=== PATIENT | male | born 1995 | race Caucasian/White ===

== ENCOUNTER 2018-10-24 21:37 | Emergency (ER) | payer OTHER ==
[2018-10-24 22:56] LABS: Urine Blood NEGATIVE (NEG); Urine Glucose NEGATIVE (NEG); Urine Protein TRACE (NEG)
[2018-10-24] MEDS ORDERED: ONDANSETRON 4 MG/2 ML VIAL ONE (23:17)
[2018-10-24] MEDS ORDERED: NA CHLORIDE 0.9% 1,000 ML ONE (23:17)
[2018-10-24 23:27] LABS: Absolute Lymphocytes (CBC) 1.6 K/uL (0.7-4.9); Absolute Monocytes 0.6 K/uL (0.1-1.3); Absolute Neutrophil 1.7 K/uL (1.8-8.0); Basophils % 0.5 % (0-1.3); Hematocrit 46.2 % (39.6-49.0); Lymphocytes % 40.2 % (15.3-44.8); MPV 10.4 fL (7.6-11.3); Monocytes % 15.1 % (3.3-12.3); RBC Red Blood Cell Count 5.29 M/uL (4.33-5.43)
[2018-10-24] MEDS ORDERED: FENTANYL CITR 100 MCG/2 ML ONE (23:27)
[2018-10-24 23:43] LABS: Albumin 3.7 g/dL (3.4-5.0); Bilirubin Direct 0.1 mg/dL (0-0.2); Bilirubin Total 0.3 mg/dL (0.2-1.0); Potassium 3.4 mmol/L (3.5-5.1); Protein, Total 7.3 g/dL (6.4-8.2)
[2018-10-25 00:28] LABS: Blood Morphology Comment NOT SEEN (NOT SEEN); Platelet Estimate ADEQ; Urine White Blood Cell Casts OK
[2018-10-25] MEDS ORDERED: ONDANSETRON 4 MG/2 ML VIAL ONE (01:15)
[2018-10-25] MEDS ORDERED: CIPROFLOXACIN 400mg IV 400 MG/200 ML BAG IV ONE (01:44)
[2018-10-25] MEDS ORDERED: METRONIDAZOLE 500mg IVPB 500 MG/100 ML BAG IV ONE (01:44)
--- NOTE | 2018-10-25 01:58 | ER ---
Nurse's Notes [facility] Name: Ifrah Tavarez Age: 23 yrs Sex: Male : 1995 Arrival Date: 10/24/2018 Time: 21:42 Bed 26 Private MD: Diagnosis: Illeocolitis Presentation: 10/24 21:42 Presenting complaint: Patient states: "Today is the 3rd day, it feels like food lp1 poisoning"; States he can't eat, upon standing, gets dizzy; Initially began as cold-like symptoms but has progressed; States feeling chills, cold sweats. Transition of care: patient was not received from another setting of care. Onset of symptoms was October 24, 2018. Risk Assessment: Do you want to hurt yourself or someone else? Patient reports no desire to harm self or others. Initial Sepsis Screen: Does the patient meet any 2 criteria? No. Patient's initial sepsis screen is negative. Does the patient have a suspected source of infection? No. Patient's initial sepsis screen is negative. Care prior to arrival: None. 21:42 Method Of Arrival: Ambulatory lp1 21:42 Acuity: JESSIKA 3 lp1 Historical: - Allergies: 21:44 No Known Allergies; lp1 - Home Meds: 21:44 None [Active]; lp1 - PMHx: 21:44 GERD; lp1 - PSHx: 21:44 None; lp1 - Immunization history:: Adult Immunizations up to date, Flu vaccine is not up to date. - Social history:: Smoking status: Patient uses tobacco products, denies chronic smoking, but will smoke occasionally. - Ebola Screening: : No symptoms or risks identified at this time. Screenin:09 Abuse screen: Denies threats or abuse. Denies injuries from another. Nutritional rv screening: No deficits noted. Tuberculosis screening: No symptoms or risk factors identified. Fall Risk None identified. Assessment: 22:08 General: Appears in no apparent distress. uncomfortable, Behavior is calm, cooperative. rv Pain: Complains of pain in abdomen. Neuro: Level of Consciousness is awake, alert, obeys commands, Oriented to person, place, time, situation. Cardiovascular: Capillary refill < 3 seconds. Respiratory: Airway is patent. GI: Abdomen is round Abd is soft and non tender X 4 quads. : No signs and/or symptoms were reported regarding the genitourinary system. EENT: No signs and/or symptoms were reported regarding the EENT system. Derm: Skin is intact. Musculoskeletal: No signs and/or symptoms reported regarding the musculoskeletal system. 10/25 00:52 Reassessment: Pt requested oral fluids after CT scan, informed SAV Esquivel. Instructed on ca1 just a little sip of water. Will wait for CT scan result. 02:00 Reassessment: Patient appears in no apparent distress at this time. Patient and/or rv family updated on plan of care and expected duration. Pain level reassessed. Patient is alert, oriented x 3, equal unlabored respirations, skin warm/dry/pink. Patient states feeling better. Patient states symptoms have improved. Vital Signs: 10/24 21:45 BP 121 / 78; Pulse 105; Resp 20; Temp 99.4(O); Pulse Ox 97% on R/A; Weight 113.4 kg; lp1 Height 5 ft. 10 in. (177.80 cm); Pain 8/10; 22:00 BP 110 / 58 LA; Pulse 92; Resp 19 S; Pulse Ox 98% on R/A; rv 23:00 BP 124 / 89 LA; Pulse 93; Resp 17 S; Pulse Ox 99% on R/A; rv 10/25 00:00 BP 110 / 73 LA; Pulse 61; Resp 16 S; Pulse Ox 98% on R/A; rv 01:00 BP 124 / 78 LA Supine; Pulse 87; Resp 18 S; Pulse Ox 99% on R/A; rv 03:00 BP 102 / 65 LA; Pulse 74; Resp 17 S; Pulse Ox 98% on R/A; rv 10/24 21:45 Body Mass Index 35.87 (113.40 kg, 177.80 cm) lp1 ED Course: 10/24 21:42 Patient arrived in ED. es 21:44 Triage completed. lp1 21:45 Arm band placed on left wrist. lp1 21:54 Alvin Mancia PA is PHCP. jr8 21:54 Reggie Delgado MD is Attending Physician. jr8 22:09 Patient has correct armband on for positive identification. Placed in gown. Bed in low rv position. Call light in reach. Side rails up X 1. Adult w/ patient. Pulse ox on. NIBP on. 23:54 X-ray completed. Portable x-ray completed in exam room. Patient tolerated procedure kw well. 23:56 XRAY Chest (1 view) In Process Unspecified. EDMS 10/25 00:[address] via wheelchair. kw1 00:33 CT completed. Patient tolerated procedure well. Patient moved back from CT. kw1 00:56 CT Abd/Pelvis - W/Contrast In Process Unspecified. EDMS 03:11 No provider procedures requiring assistance completed. IV discontinued, bleeding rv controlled, No redness/swelling at site. Pressure dressing applied. Administered Medications: 10/24 23:11 Drug: Zofran 4 mg Route: IVP; Site: right antecubital; rv 23:46 Follow up: Response: Nausea is decreased rv 23:11 Drug: NS 0.9% 1000 ml Route: IV; Rate: 1000 ml; Site: right antecubital; rv 23:15 Drug: fentaNYL (PF) 50 mcg Route: IVP; Site: right antecubital; rv 23:47 Follow up: Response: Pain is decreased rv 10/25 01:35 Drug: Flagyl 500 mg Volume: 100 ml; Route: IVPB; Rate: 200 ml/hr; Infused Over: 30 rv mins; Site: right antecubital; 02:57 Follow up: IV Status: Completed infusion rv 02:30 Drug: Cipro 400 mg Volume: 200 ml; Route: IVPB; Infused Over: 60 mins; Site: right rv antecubital; Outcome: 01:57 Discharge ordered by MD. donahue 03:11 Discharged to home ambulatory. rv 03:11 Condition: good 03:11 Discharge instructions given to patient, family, Instructed on discharge instructions, follow up and referral plans. medication usage, Demonstrated understanding of instructions, follow-up care, medications, Prescriptions given X 4. 03:36 Patient left the ED. rv Signatures: Dispatcher [employer] EDAbigail Ventura Kimberlee kw Pena, Laura, RN RN lp1 Alvin Mancia PA PA jr8 Bertha Medeiros kwSay Smith RN RN rv Corinna Means RN RN ca1
--- NOTE | 2018-10-25 01:58 | EDPHYS ---
Physician Documentation [facility] Name: Ifrah Tavarez Age: 23 yrs Sex: Male : 1995 Arrival Date: 10/24/2018 Time: 21:42 Bed 26 Private MD: ED Physician Reggie Delgado HPI: 10/24 23:55 This 23 yrs old Male presents to ER via Ambulatory with complaints of jr8 Abdominal Pain, Vomiting. 23:55 The patient presents with abdominal pain that is diffuse. Onset: The symptoms/episode jr8 began/occurred gradually, 4 day(s) ago. The symptoms do not radiate. Associated signs and symptoms: Pertinent positives: nausea, vomiting, and diarrhea. The symptoms are described as crampy, dull. Modifying factors: The symptoms are alleviated by nothing, the symptoms are aggravated by food. Severity of pain: At its worst the pain was mild in the emergency department the pain is unchanged. The patient has not experienced similar symptoms in the past. The patient has not recently seen a physician. Stated that he cannot hold anything down liquid or food reece. Continues to have multiple watery stools throughout the day. Historical: - Allergies: 21:44 No Known Allergies; lp1 - Home Meds: 21:44 None [Active]; lp1 - PMHx: 21:44 GERD; lp1 - PSHx: 21:44 None; lp1 - Immunization history:: Adult Immunizations up to date, Flu vaccine is not up to date. - Social history:: Smoking status: Patient uses tobacco products, denies chronic smoking, but will smoke occasionally. - Ebola Screening: : No symptoms or risks identified at this time. ROS: 23:55 Eyes: Negative for injury, pain, redness, and discharge, ENT: Negative for injury, jr8 pain, and discharge, Neck: Negative for injury, pain, and swelling, Cardiovascular: Negative for chest pain, palpitations, and edema, Respiratory: Negative for shortness of breath, cough, wheezing, and pleuritic chest pain, Back: Negative for injury and pain, MS/Extremity: Negative for injury and deformity, Skin: Negative for injury, rash, and discoloration, Neuro: Negative for headache, weakness, numbness, tingling, and seizure. 23:55 Abdomen/GI: Positive for abdominal pain, nausea, vomiting, and diarrhea, abdominal cramps, Negative for abdominal distension, anorexia, dysphagia, hematemesis, black/tarry stool, rectal pain, rectal bleeding, bowel incontinence, flatulence. Exam: 23:55 Eyes: Pupils equal round and reactive to light, extra-ocular motions intact. Lids and jr8 lashes normal. Conjunctiva and sclera are non-icteric and not injected. Cornea within normal limits. Periorbital areas with no swelling, redness, or edema. ENT: Nares patent. No nasal discharge, no septal abnormalities noted. Tympanic membranes are normal and external auditory canals are clear. Oropharynx with no redness, swelling, or masses, exudates, or evidence of obstruction, uvula midline. Mucous membranes moist. Neck: Trachea midline, no thyromegaly or masses palpated, and no cervical lymphadenopathy. Supple, full range of motion without nuchal rigidity, or vertebral point tenderness. No Meningismus. Cardiovascular: Regular rate and rhythm with a normal S1 and S2. No gallops, murmurs, or rubs. Normal PMI, no JVD. No pulse deficits. Respiratory: Lungs have equal breath sounds bilaterally, clear to auscultation and percussion. No rales, rhonchi or wheezes noted. No increased work of breathing, no retractions or nasal flaring. Back: No spinal tenderness. No costovertebral tenderness. Full range of motion. Skin: Warm, dry with normal turgor. Normal color with no rashes, no lesions, and no evidence of cellulitis. MS/ Extremity: Pulses equal, no cyanosis. Neurovascular intact. Full, normal range of motion. Neuro: Awake and alert, GCS 15, oriented to person, place, time, and situation. Cranial nerves II-XII grossly intact. Motor strength 5/5 in all extremities. Sensory grossly intact. Cerebellar exam normal. Normal gait. 23:55 Abdomen/GI: Inspection: obese Bowel sounds: active, all quadrants, Palpation: soft, in all quadrants, mild abdominal tenderness, in the suprapubic area, right lower quadrant and left lower quadrant, mass, is not appreciated, rebound tenderness, is not appreciated, voluntary guarding, is not appreciated, involuntary guarding, is not appreciated, no appreciated organomegaly, Indicators: McBurney's point is not tender, Martinez's sign is negative, Rovsing's sign is negative, Liver: tenderness, is not appreciated. Vital Signs: 21:45 BP 121 / 78; Pulse 105; Resp 20; Temp 99.4(O); Pulse Ox 97% on R/A; Weight 113.4 kg; lp1 Height 5 ft. 10 in. (177.80 cm); Pain 8/10; 22:00 BP 110 / 58 LA; Pulse 92; Resp 19 S; Pulse Ox 98% on R/A; rv 23:00 BP 124 / 89 LA; Pulse 93; Resp 17 S; Pulse Ox 99% on R/A; rv 10/25 00:00 BP 110 / 73 LA; Pulse 61; Resp 16 S; Pulse Ox 98% on R/A; rv 01:00 BP 124 / 78 LA Supine; Pulse 87; Resp 18 S; Pulse Ox 99% on R/A; rv 03:00 BP 102 / 65 LA; Pulse 74; Resp 17 S; Pulse Ox 98% on R/A; rv 10/24 21:45 Body Mass Index 35.87 (113.40 kg, 177.80 cm) lp1 MDM: 10/24 22:38 Patient medically screened. 8 10/25 01:56 Data reviewed: vital signs, nurses notes, lab test result(s), radiologic studies, CT jr8 scan. Data interpreted: Pulse oximetry: on room air is 97 %. Interpretation: normal. Counseling: I had a detailed discussion with the patient and/or guardian regarding: the historical points, exam findings, and any diagnostic results supporting the discharge/admit diagnosis, lab results, radiology results, the need for outpatient follow up, a family practitioner, to return to the emergency department if symptoms worsen or persist or if there are any questions or concerns that arise at home. Response to treatment: the patient's symptoms have markedly improved after treatment, patient is well hydrated. 10/24 22:25 Order name: Urine Dipstick--Ancillary (enter results); Complete Time: 23:58 2 10/24 23:00 Order name: Basic Metabolic Panel; Complete Time: 23:58 8 10/24 23:00 Order name: CBC with Diff; Complete Time: 00:31 jr8 10/24 23:00 Order name: Creatinine for Radiology; Complete Time: 23:58 8 10/24 23:00 Order name: Hepatic Function; Complete Time: 23:58 8 10/24 23:00 Order name: Lipase; Complete Time: 23:58 8 10/24 23:00 Order name: XRAY Chest (1 view) 8 10/24 23:00 Order name: CT Abd/Pelvis - W/Contrast 8 10/25 00:28 Order name: CBC Smear Scan; Complete Time: 00:31 EDMS 10/24 23:00 Order name: IV Saline Lock; Complete Time: 23:32 8 10/24 23:00 Order name: Labs collected and sent; Complete Time: 23:32 [facility] Administered Medications: 10/24 23:11 Drug: Zofran 4 mg Route: IVP; Site: right antecubital; rv 23:46 Follow up: Response: Nausea is decreased rv 23:11 Drug: NS 0.9% 1000 ml Route: IV; Rate: 1000 ml; Site: right antecubital; rv 23:15 Drug: fentaNYL (PF) 50 mcg Route: IVP; Site: right antecubital; rv 23:47 Follow up: Response: Pain is decreased rv 10/25 01:35 Drug: Flagyl 500 mg Volume: 100 ml; Route: IVPB; Rate: 200 ml/hr; Infused Over: 30 rv mins; Site: right antecubital; 02:57 Follow up: IV Status: Completed infusion rv 02:30 Drug: Cipro 400 mg Volume: 200 ml; Route: IVPB; Infused Over: 60 mins; Site: right rv antecubital; Disposition: 10/25/18 01:57 Discharged to Home. Impression: Illeocolitis. - Condition is Stable. - Discharge Instructions: Colitis. - Prescriptions for Bentyl 20 mg Oral Tablet - take 1 tablet by ORAL route every 6 hours As needed; 20 tablet. Cipro 500 mg Oral Tablet - take 1 tablet by ORAL route every 12 hours for 10 days; 20 tablet. Flagyl 500 mg Oral Tablet - take 1 tablet by ORAL route every 6 hours for 10 days; 40 tablet. Zofran 4 mg Oral Tablet - take 1 tablet by ORAL route every 12 hours As needed; 20 tablet. - Medication Reconciliation Form, Thank You Letter, Antibiotic Education, Prescription Opioid Use form. - Follow up: Private Physician; When: 2 - 3 days; Reason: Recheck today's complaints, Continuance of care, Re-evaluation by your physician. - Problem is new. - Symptoms have improved. Signatures: Dispatcher [employer] EDMS Kaylee Smalls RN RN lp1 Alvin Mancia PA PA jr8 Say Bundy RN RN rv Corrections: (The following items were deleted from the chart) 03:36 01:57 10/25/2018 01:57 Discharged to Home. Impression: Illeocolitis. Condition is rv Stable. Forms are Medication Reconciliation Form, Thank You Letter, Antibiotic Education, Prescription Opioid Use. Follow up: Private Physician; When: 2 - 3 days; Reason: Recheck today's complaints, Continuance of care, Re-evaluation by your physician. Problem is new. Symptoms have improved. jr8
--- NOTE | 2018-10-25 08:36 | RAD REPORT ---
EXAM DESCRIPTION: Carolin Single View10/24/2018 11:56 pm CLINICAL HISTORY: Cough COMPARISON: none FINDINGS: The lungs appear clear of acute infiltrate. The heart is normal size IMPRESSION: No acute abnormalities displayed
--- NOTE | 2018-10-28 11:13 | RAD REPORT ---
EXAM DESCRIPTION: CT - Abdomen Pelvis W Contrast - 10/25/2018 4:06 am CLINICAL HISTORY: 23 years Male iv only;Abd pain COMPARISON: None TECHNIQUE: Images were obtained in axial, sagittal, and coronal planes. Intravenous contrast was adm inistered. This exam was performed according to our departmental dose-optimization program which includes use of Automated Exposure Control, adjustment of the mA and/or kV according to patient size and/or use of i terative reconstruction technique. FINDINGS: No abnormality involving the liver. Spleen is enlarged measuring 14.2 cm in greatest dimen diana. Unremarkable pancreas, gallbladder, and right adrenal gland. 2.3 cm low-attenuation lesion left adrenal gland possibly myolipoma or adenoma. No obstructing renal calcifications bilaterally. No hydronephrosis bilaterally. Unremarkable bladder. Appendix within normal limits. Mucosal thickening involving the colon and terminal ileum. No bowel ob struction or perforation. No dilatation abdominal aorta. No adenopathy or abnormal fluid collections seen. No abnormality lower lungs. No acute osseous abnormality. Segmentation transverse process L2 on right system with normal variant. IMPRESSION: Findings consistent with ileocolitis. No bowel obstruction or perforation. Enlarged spleen. No adenopathy. Electronically signed by: Cammie Valenzuela MD 10/25/2018 1:03 AM CDT Due to temporary technical issues with the PACS/Fluency reporting system, reports are being signed by the in house radiologist as a courtesy to ensure prompt reporting. The interpreting radiologist is f ully responsible for the content of the report.
== END 2018-10-25 03:36 | disposition home or self-care (01) ==
LOC: ER 21:37
DX: K52.9 Noninfective gastroenteritis and colitis, unspecified (principal); Z72.0 Tobacco use
CPT/HCPCS: 36415; 71045; 74177; 80048; 80076; 81003; 82962; 83690; 85025; 96365; 96375; 99284; J0744; J2405; J3010; J7030; Q9967